=== PATIENT | female | born 1990 | race Caucasian/White ===

== ENCOUNTER 2018-01-14 16:55 | Emergency (ER) | payer OTHER ==
[~2018-01-14] VITALS: Ht 165.1 cm; Wt 90.7 kg
--- NOTE | 2018-01-14 17:12 | NUR ---
A/OX4, PT CAME TO ER FOR DOG BITES TO RIGHT FOREARM AND RIGHT THIGH x 2 HRS [employer]. NAD VSS RR EVEN AND UNLABROED. PENDING ER MD EVALUATION
--- NOTE | 2018-01-14 17:20 | NUR ---
Marko MCCALLUM at bedside for wound care.
[2018-01-14] MEDS ORDERED: ACETAMINOPHEN 325 MG TABLET PO STA (17:22)
[2018-01-14] MEDS ORDERED: DOXYCYCLINE HYCLATE (100 MG) 100 MG TABLET PO STA (17:22)
[2018-01-14] MEDS ORDERED: IBUPROFEN 600 MG TABLET PO ONE ×2 (17:30→17:36)
[2018-01-14] MEDS ORDERED: DOXYCYCLINE HYCLATE (100 MG) 100 MG TABLET ONE (17:35)
[2018-01-14] MEDS ORDERED: ACETAMINOPHEN 325 MG TABLET ONE (17:35)
--- NOTE | 2018-01-14 17:39 | NUR ---
Medicated as ordered.
--- NOTE | 2018-01-14 18:05 | NUR ---
Patient discharged to home in stable condition. Written and verbal after care instructions given. Patient verbalizes understanding of instruction.
[2018-01-14 18:08] VITALS: BP 127/68
== END 2018-01-14 18:10 | disposition home or self-care (01) ==
LOC: ER 16:59
DX: S51.851A Open bite of right forearm, initial encounter (principal); Z88.0 Allergy status to penicillin; W54.0XXA Bitten by dog, initial encounter; Y93.89 Activity, other specified; Y92.89 Other specified places as the place of occurrence of the external cause; Y99.8 Other external cause status
CPT/HCPCS: A4606; A6402; Z7610